=== PATIENT | female | born 1960 | race Caucasian/White ===

== ENCOUNTER 2025-05-29 12:15 | Emergency (ER) | payer OTHER, SELFPAY ==
[2025-05-29] VITALS (38 sets, daily range): BP systolic 103–138; BP diastolic 57–85; PULSE 65–142; RESP 12–176; TEMP 36.2; O2SAT 96–99; BMI 17.6
--- NOTE | 2025-05-29 12:29 | EKG_ITS ---
[place] [id number] [place] [id number] Test Date: 2025-05-29 Pat Name: Tres Fisher Department: [facility] Room: Gender: Female Residential Youth Counselor: TAMIKO : 1960 Requested By: Order Number: [id number] Reading MD: Adiel Harvey MD Measurements Intervals [place] Rate: 139 P: RI: QRS: 78 QRSD: 88 T: 26 QT: 280 QTc: 426 Interpretive Statements Atrial fibrillation with rapid ventricular response Cannot rule out Anterior infarct , age undetermined NO PRIOR TRACING Electronically Signed On 05-30-2025 7:17:16 PST by Adiel Harvey MD
[2025-05-29 12:58] LABS: INR 1.1 (0.9-1.3); Prothrombin Time 12.7 SECONDS (9.4-12.5)
[2025-05-29 13:01] LABS: PTT Partial Thromboplastin Tim 32 SECONDS (25.1-36.5)
[2025-05-29 13:12] LABS: Alanine Aminotransferase 21 IU/L (<35); Albumin 4.6 g/dL (3.5-5.0); Albumin Globulin Ratio 1.5 (1.0-2.8); Alkaline Phosphatase 84 U/L (38-126); Blood Urea Nitrogen 22 mg/dL (7-17); Calcium 9.1 mg/dL (8.4-10.2); Carbon Dioxide 27 mmol/L (22-32); Chloride 102 mmol/L (98-107); Creatine Kinase 34 U/L (30-135); Estimated Glomerular Filt Rate > 60 mL/min (>60); Globulin 3.1 g/dL (1.7-4.1); Glucose 90 mg/dL (70-99); HEMOLYSIS < 15 (0-50); Lipase 163 U/L (23-300); Magnesium 2.0 mg/dL (1.6-2.3); Potassium 3.8 mmol/L (3.4-5.1); Sodium 137 mmol/L (137-145); Total Protein 7.7 g/dL (6.3-8.2)
[2025-05-29 13:23] LABS: NT-proBNP (BNP-Adult 18+) 2620 pg/mL (<125); Troponin I 0.015 ng/mL (0.01-0.034)
[2025-05-29 13:50] LABS: Hematocrit 29.0 % (36-46); Hemoglobin 10.8 g/dL (12.0-16.0); Mean Corpuscular HGB Conc 37.4 % (30-36); Mean Corpuscular Hemoglobin 30.3 PG (26-34); Mean Corpuscular Volume 81.0 fL (80-100); Platelet Count 461 X10^3/uL (150-400)
[2025-05-29 13:52] LABS: Add Manual Diff / Slide Review YES
--- NOTE | 2025-05-29 13:58 | PC.NURSE ---
Patient wanting to speak to provider prior to getting diltiazem, provider Jacobo made aware.
[2025-05-29 14:04] LABS: Anisocytosis 2+; Band Neutrophils Percent 5.0 % (3-7); Basophils Percent Manual 1.0 % (0-1); Eosinophils Percent Manual 1.0 % (2-4); Lymphocytes Percent Manual 18.0 % (25-45); Macrocytosis 1+; Microcytosis 1+; Monocytes Percent Manual 9.0 % (2-11); Neutrophils Absolute Manual 7384 /uL (3000-5900); Polychromasia 1+; Segmented Neutrophils Percent 66.0 % (38-70); Total Cells Counted 100
[2025-05-29 14:05] LABS: Poikilocytosis 1+
[2025-05-29 14:06] LABS: Acanthocytes 1+
--- NOTE | 2025-05-29 14:11 | ED_ITS ---
HPI - Arrhythmia/Palpitations General Chief Complaint: Arrhythmia/Palpitations Stated Complaint: Irregular heartbeat since 8 AM Time Seen by Provider: 05/29/25 12:48 Source: patient Mode of arrival: Ambulatory History of Present Illness HPI narrative: Patient is a 65-year-old female history of his Farrow cytosis hemochromatosis, atrial fibrillation with an ablation 4 years prior presenting today in AFib. She reports it started about 8:00 a.m.. She can feel it irregular in her chest. She reports yesterday she was within normal limits. She is not on Eliquis, though she has been on it in the past, she has not had an episode and a number of years. She denies any chest pain or shortness of breath. No other symptoms. She reports that she played pickleball this morning hoping that her heart rate would get better, sadly it did not. Related Data Previous Rx's ?Medication ?Instructions ?Recorded apixaban 5 mg tablet (Eliquis) 5 mg PO BID #60 tabs Allergies Allergy/AdvReac Type Severity Reaction Status Date / Time No Known Drug Allergies Allergy Verified 05/29/25 12:25 Patient History Social History Smoking Status: Never smoker Smoking Status: Never smoker Exam Initial Vital Signs Initial Vital Signs: Vital Signs Temperature 97.1 F L 05/29/25 12:25 Pulse Rate 142 H 05/29/25 12:25 Respiratory Rate 20 05/29/25 12:25 Blood Pressure 103/74 05/29/25 12:25 Pulse Oximetry 97 05/29/25 12:25 Oxygen Delivery Method Room Air 05/29/25 12:25 GENERAL: Alert pleasant 65-year-old female jaundice and in no acute distress. HEENT: Head atraumatic,EOMI, pupils reactive, face symmetric, moist mucous membranes CARDIOVASCULAR: Irregularly irregular RESPIRATORY: Breath sounds equal bilaterally, no wheezes rales or rhonchi. ABDOMEN: Soft, nontender. Normoactive bowel sounds all 4 quadrants. No guarding or rebound. EXTREMITIES: Normal range of motion, no clubbing or edema. Neurovascularly intact NEUROLOGICAL: Alert and oriented x4.Normal gait and speech. Cranial nerves II through XII grossly intact. SKIN: Warm, dry, no laceration, no petechiae, no rashes or lesions. Procedures Cardioversion Time of Cardioversion: 15:05 Consent Signed: Yes Indication: a.fib Stability: Stable Number of attempts (shocks): 1 Joules used: 120 Cardiac rhythm post-cardioversion: NSR Procedural Sedation Time of procedure: 15:00 Consent signed: Yes Time out performed: Yes Indication: cardioversion ASA Class: II Mallampati Airway Classification: Class I Time of Last PO Intake: 11:00 Preparation: nuclear monitoring technician applied, pulse oximeter, capnometry used, supplemental O2 applied, reversal agents at bedside, suction/airway equipment at bedside and IV secured IV Propofol dose (mg): 40 Intraservice time/total sedation time (min): 12 ED Sedation Level: Moderate (Concious) Patient Tolerated Procedure: Well and No complications Complications: none Course Orders Ordered: ED Orders 05/29/25 12:23 EKG-12 Lead Stat 05/29/25 12:44 Complete Blood Count AUTO DIFF Stat Comprehensive Metabolic Panel Stat Lipase Stat Magnesium Stat NT-proBNP (BNP-Adult 18+) Stat PTT Partial Thromboplastin Anderson Stat Prothrombin Time INR Stat Troponin & CK Cardiac Panel Stat 05/29/25 14:00 Urine Microscopic Stat Discontinued Medications Apixaban (Apixaban 5 Mg Tablet) 5 mg PO NOW ONE Stop: 05/29/25 15:59 Last Admin: 05/29/25 16:15 Dose: 5 mg Documented By: SATNAM Aspirin (Aspirin 81 Mg Chew Tab) 324 mg PO NOW ONE Stop: 05/29/25 12:24 Last Admin: 05/29/25 13:23 Dose: Not Given Documented By: BZ Diltiazem HCl (Diltiazem 25 Mg/5 Ml Sdv) 10 mg IV NOW ONE Stop: 05/29/25 13:24 Last Admin: 05/29/25 14:10 Dose: 10 mg Documented By: BZ Propofol (Propofol 200 Mg/20 Ml Vial) 55 mg 1 mg/kg (55 mg) IV NOW ONE Stop: 05/29/25 14:22 Last Admin: 05/29/25 15:09 Dose: 40 mg Documented By: BZ Vital Signs Vital signs: Vital Signs - 8 hr 05/29/25 12:25 05/29/25 12:51 05/29/25 13:00 Temperature 97.1 F L Pulse Rate 142 H 139 H Respiratory Rate 20 15 Blood Pressure 103/74 122/85 Pulse Oximetry 97 98 Oxygen Delivery Method Room Air 05/29/25 13:00 05/29/25 13:15 05/29/25 13:15 Temperature Pulse Rate 133 H 131 H Respiratory Rate 20 15 Blood Pressure 138/67 Pulse Oximetry 98 97 Oxygen Delivery Method Room Air 05/29/25 13:30 05/29/25 13:30 05/29/25 13:45 Temperature Pulse Rate 127 H Respiratory Rate 19 Blood Pressure 118/70 129/69 Pulse Oximetry 98 Oxygen Delivery Method 05/29/25 13:45 05/29/25 14:00 05/29/25 14:00 Temperature Pulse Rate 123 H 131 H Respiratory Rate 15 14 Blood Pressure 125/72 Pulse Oximetry 97 97 Oxygen Delivery Method 05/29/25 14:10 05/29/25 14:14 05/29/25 14:14 Temperature Pulse Rate 135 H 135 H Respiratory Rate 13 Blood Pressure 125/72 104/80 Pulse Oximetry 98 Oxygen Delivery Method Room Air 05/29/25 14:16 05/29/25 14:16 05/29/25 14:18 Temperature Pulse Rate 132 H Respiratory Rate 22 Blood Pressure 120/82 126/75 Pulse Oximetry 97 Oxygen Delivery Method 05/29/25 14:18 05/29/25 14:20 05/29/25 14:20 Temperature Pulse Rate 118 H 92 H Respiratory Rate 21 22 Blood Pressure 109/62 Pulse Oximetry 99 98 Oxygen Delivery Method 05/29/25 14:22 05/29/25 14:22 05/29/25 14:24 Temperature Pulse Rate 97 H Respiratory Rate 25 H Blood Pressure 106/72 128/58 L Pulse Oximetry 97 Oxygen Delivery Method 05/29/25 14:24 05/29/25 14:26 05/29/25 14:26 Temperature Pulse Rate 93 H 96 H Respiratory Rate 19 24 Blood Pressure 121/71 Pulse Oximetry 96 98 Oxygen Delivery Method 05/29/25 14:28 05/29/25 14:28 05/29/25 14:30 Temperature Pulse Rate 94 H Respiratory Rate 29 H Blood Pressure 120/72 108/80 Pulse Oximetry 98 Oxygen Delivery Method 05/29/25 14:30 05/29/25 14:32 05/29/25 14:32 Temperature Pulse Rate 93 H 101 H Respiratory Rate 24 23 Blood Pressure 130/69 Pulse Oximetry 99 97 Oxygen Delivery Method 05/29/25 14:34 05/29/25 14:34 05/29/25 14:36 Temperature Pulse Rate 94 H Respiratory Rate 26 H Blood Pressure 131/73 119/68 Pulse Oximetry 98 Oxygen Delivery Method 05/29/25 14:36 05/29/25 14:38 05/29/25 14:38 Temperature Pulse Rate 96 H 100 H Respiratory Rate 24 21 Blood Pressure 128/78 Pulse Oximetry 99 97 Oxygen Delivery Method 05/29/25 14:40 05/29/25 14:40 05/29/25 14:42 Temperature Pulse Rate 97 H Respiratory Rate 24 Blood Pressure 132/67 132/67 Pulse Oximetry 99 Oxygen Delivery Method 05/29/25 14:42 05/29/25 14:45 05/29/25 14:45 Temperature Pulse Rate 96 H 112 H Respiratory Rate 27 H 22 Blood Pressure 126/61 Pulse Oximetry 98 98 Oxygen Delivery Method 05/29/25 15:00 05/29/25 15:11 05/29/25 15:11 Temperature Pulse Rate 121 H 76 Respiratory Rate 176 H 21 Blood Pressure 111/57 L Pulse Oximetry 99 97 Oxygen Delivery Method 05/29/25 15:15 05/29/25 15:15 05/29/25 15:20 Temperature Pulse Rate 71 Respiratory Rate 14 Blood Pressure 123/71 115/63 Pulse Oximetry 96 Oxygen Delivery Method 05/29/25 15:20 05/29/25 15:25 05/29/25 15:25 Temperature Pulse Rate 80 80 Respiratory Rate 14 13 Blood Pressure 115/63 Pulse Oximetry 96 96 Oxygen Delivery Method 05/29/25 15:30 05/29/25 15:30 05/29/25 15:35 Temperature Pulse Rate 76 67 Respiratory Rate 16 12 Blood Pressure 114/59 L Pulse Oximetry 97 97 Oxygen Delivery Method Room Air 05/29/25 15:35 05/29/25 15:40 05/29/25 15:40 Temperature Pulse Rate 69 Respiratory Rate 14 Blood Pressure 111/61 115/61 Pulse Oximetry 97 Oxygen Delivery Method 05/29/25 15:44 05/29/25 15:45 05/29/25 15:45 Temperature Pulse Rate 86 65 Respiratory Rate 14 20 Blood Pressure 113/64 Pulse Oximetry 98 Oxygen Delivery Method Room Air 05/29/25 15:50 05/29/25 15:50 05/29/25 15:53 Temperature Pulse Rate 65 Respiratory Rate 15 Blood Pressure 113/67 113/64 Pulse Oximetry 98 Oxygen Delivery Method 05/29/25 15:53 05/29/25 16:00 05/29/25 16:00 Temperature Pulse Rate 66 74 Respiratory Rate 17 24 Blood Pressure 131/73 Pulse Oximetry 98 98 Oxygen Delivery Method 05/29/25 16:15 05/29/25 16:15 Temperature Pulse Rate 70 Respiratory Rate 20 Blood Pressure 126/60 Pulse Oximetry 99 Oxygen Delivery Method MDM - Arrhythmia/Palpitations Lab Data 05/29/25 12:44 05/29/25 12:44 Labs: Lab Results 05/29/25 05/29/25 Range/Units 12:44 14:00 WBC 10.4 (4.5-11.0) X10^3/uL RBC 3.58 L (4.0-5.2) X10^6/uL Hgb 10.8 L (12.0-16.0) g/dL Hct 29.0 L (36-46) % MCV 81.0 (80-100) fL MCH 30.3 (26-34) PG MCHC 37.4 H (30-36) % RDW 30.4 H (11.6-14.8) % Plt Count 461 H (150-400) X10^3/uL Neut % (Auto) Not Reportable Lymph % (Auto) Not Reportable [place] % (Auto) Not Reportable Eos % (Auto) Not Reportable Baso % (Auto) Not Reportable Lymph # (Auto) Not Reportable [place] # (Auto) Not Reportable Baso # (Auto) Not Reportable Total Counted 100 Seg Neutrophils % 66.0 (38-70) % Band Neutrophils % 5.0 (3-7) % Lymphocytes % (Manual) 18.0 L (25-45) % Monocytes % (Manual) 9.0 (2-11) % Eosinophils % (Manual) 1.0 L (2-4) % Basophils % (Manual) 1.0 (0-1) % Neutrophils # (Manual) 7384 H (1173-1933) /uL Nucleated RBCs 1 H ( - 0) #/Diff RBC Morphology See below Polychromasia 1+ H Poikilocytosis 1+ H Anisocytosis 2+ H Microcytosis 1+ H Macrocytosis 1+ H Acanthocytes (Spur) 1+ H PT 12.7 H (9.4-12.5) SECONDS INR 1.1 (0.9-1.3) APTT 32 (25.1-36.5) SECONDS Sodium 137 (137-145) mmol/L Potassium 3.8 (3.4-5.1) mmol/L Chloride 102 (98-107) mmol/L Carbon Dioxide 27 (22-32) mmol/L BUN 22 H (7-17) mg/dL Creatinine 0.90 (0.52-1.04) mg/dL Estimated GFR > 60 (>60) mL/min BUN/Creatinine Ratio 24.4 H (6-22) Glucose 90 (70-99) mg/dL Calcium 9.1 (8.4-10.2) mg/dL Magnesium 2.0 (1.6-2.3) mg/dL Total Bilirubin 7.7 H (0.2-1.3) mg/dL AST 54 H (14-36) IU/L ALT 21 (<35) IU/L Alkaline Phosphatase 84 (38-126) U/L Total Creatine Kinase 34 (30-135) U/L Troponin I 0.015 (0.01-0.034) ng/mL NT-Pro-B Natriuret Pep 2620 H (<125) pg/mL Total Protein 7.7 (6.3-8.2) g/dL Albumin 4.6 (3.5-5.0) g/dL Globulin 3.1 (1.7-4.1) g/dL Albumin/Globulin Ratio 1.5 (1.0-2.8) Lipase 163 (23-300) U/L Urine RBC None seen (0-5/HPF) Urine WBC None seen (0-5/HPF) Ur Squamous Epith Cells 0-1 /hpf (0-5/HPF) Urine Bacteria None seen (None) Ur Culture Indicated? Cult not indicated Vol Urine Centrifuged 10ml (spun) Point of Care Testing Test Results Not applicable Urine Dip Bedside Urine Glucose Negative Bedside Urine Bilirubin - Negative Bedside Urine Ketone - Negative Urine Specific [place] 1.010 Bedside Urine Occult Blood + Bedside Urine pH 8.0 Bedside Urine Protein - Negative Bedside Urine Urobilinogen - Negative Bedside Urine Nitrite - Negative Bedside Urine Leukocytes - Negative Esterase ECG Data Attestation: I personally reviewed and interpreted this ECG as follows: Prior ECG tracings: not available for review Interpretation: Atrial fibrillation with RVR rate 139 no ischemia no priors to compare EKGs 2. Sinus rhythm rate 70 no ischemia MDM Narrative Medical decision making narrative: Patient is 65-year-old female history of paroxysmal atrial fibrillation presenting today with AFib. She has been in AFib for under 24 hours no contraindication to cardioversion. She initially was hesitant to have Cardizem but ultimately agreed. Did slow her heart but she did not convert. CHADS-VASc 1 Blood work reviewed CBC does show some anemia hemoglobin 10.8 hematocrit 29.0 unclear what her baseline is CMP no electrolyte abnormality no ANGUS Bilirubin is noted to be 7.7 AST 54 ALT 21 lipase 163 Troponin 0.015, BNP 2620 Patient declined chest x-ray EKGs reviewed 1st EKGs shows AFib with RVR repeat EKGs shows a sinus rhythm rate 70 no ischemic changes Patient agrees to a cardioversion. She was easily cardioverted to a sinus rhythm and tolerated procedure well without any kind of complication Patient is a CHADS-VASc of 1, previously been on Eliquis we will go ahead and start her on Eliquis again she can follow up with PCP and Cardiology Discharge Plan Departure Patient Disposition: Home Clinical Impression: Atrial fibrillation Instructions: DI for Atrial Fibrillation Activity Restrictions/Additional Instructions: *You have been diagnosed with atrial fibrillation *What to do: At this time you will need to speak with Cardiology. *Continue to take medications as directed Eliquis 5 mg twice a day until told by cardiology otherwise *Follow up with your primary care provider in 2-3 days or call [phone] *Return to ER if you should have increasing chest pain palpitations or weakness [or] any new, worsening or concerning symptoms Prescriptions: New Eliquis 5 mg tablet 5 mg PO BID Qty: 60 0RF Referrals: Miscellaneous,Doctor, [Primary Care Provider, Medical] Stand Alone Forms: Patient Portal/API
[2025-05-29 15:10] LABS: Culture Indicated Urine Cult Not Indicated
--- NOTE | 2025-05-29 15:44 | EKG_ITS ---
[address] [id number] Test Date: 2025-05-29 Pat Name: Tres Fisher Department: Room: Gender: Female Cash Management Coordinator: SATNAM : 1960 Requested By: Order Number: [id number] Reading MD: Adiel Harvey MD Measurements Intervals [place] Rate: 70 P: 63 OK: 196 QRS: 62 QRSD: 92 T: 69 QT: 422 QTc: 455 Interpretive Statements Normal sinus rhythm Low voltage QRS Septal infarct , age undetermined Electronically Signed On 05-30-2025 7:17:35 PST by Adiel Harvey MD
[2025-05-29] MEDS: APIXABAN 5 MG TABLET PO (16:15)
== END 2025-05-29 16:17 | disposition home or self-care (01) ==
PROVIDERS: Emergency Provider Emergency Medicine
DX: I48.91 Unspecified atrial fibrillation (principal)
CPT/HCPCS: 36415; 80053; 81003; 81015; 82550; 83690; 83735; 83880; 84484; 85007; 85025; 85610; 85730; 92960; 93005; 96365; 96374; 96375; 96376; 99284; 99285; J2704